=== PATIENT | male | born 1960 | race Hispanic/Latino ===

== ENCOUNTER 2020-08-14 21:59 | Emergency (ER) | payer OTHER ==
[2020-08-14] MEDS ORDERED: EPINEPHrine 1 MG/10 ML Abboject SYRINGE ONE (22:03)
[2020-08-14] MEDS ORDERED: Calcium Chloride 1 GM/10 ML Abboject SYRINGE ONE (22:03)
[2020-08-14] MEDS ORDERED: manNITOL 20% 500 ML ONE (22:19)
[2020-08-14 22:22] LABS: Hemoglobin 10.8 g/dL (14.0-18.0); Mean Corpuscular HGB CONC 33.7 g/dL (32.0-36.0); Mean Corpuscular Hemoglobin 31.2 pg (27.0-31.0); Mean Corpuscular Volume 92.8 fL (78.0-98.0); RBC Distribution Width 12.3 % (11.5-14.5); Red Blood Cell (RBC) Count 3.45 mill/uL (4.70-6.10); White Blood Cell (WBC) Count 14.5 thou/uL (4.8-10.8)
[2020-08-14 22:41] LABS: #Eosinphils 0.1 thou/uL (0.0-0.7); #Lymphocytes 4.7 thou/uL (1.20-3.40); #Monocytes 0.5 thou/uL (0.11-0.59); #Neutrophils 9.2 thou/uL (1.40-6.50); %Basophils 0.1 % (0.0-1.0); %Eosinophils 0.6 % (0.0-10.0); %Lymphocytes 32.2 % (21.0-51.0); %Monocytes 3.5 % (0.0-10.0); %Neutrophils 63.6 % (42.0-75.0); Mean Platelet Volume 7.5 fL (7.4-10.4); Platelet Count 68 thou/uL (130-400)
[2020-08-14 22:43] LABS: ALT (SGPT) 70 U/L (8-55); AST (SGOT) 119 U/L (5-34); Albumin 2.9 g/dL (3.5-5.0); Alcohol Less than 10 mg/dL (Less than 10); Alkaline Phosphatase 76 U/L (40-110); Anion Gap 21 mmol/L (10-20); BUN (Urea Nitrogen) 24 mg/dL (8.9-20.6); Bilirubin, Total 0.9 mg/dL (0.2-1.2); Calc. Creatinine Clearance 0 mL/min (70-130); Calcium 7.7 mg/dL (7.8-10.44); Carbon Dioxide 11 mmol/L (22-29); Chloride 113 mmol/L (98-107); Potassium 3.8 mmol/L (3.5-5.1); Protein, Total 4.9 g/dL (6.0-8.3); Sodium 141 mmol/L (136-145)
[2020-08-14 22:45] LABS: Glucose 241 mg/dL (70-105)
[2020-08-14] MEDS ORDERED: Rocuronium Bromide 10 MG/ML (10ML VIAL) ONE (22:46)
[2020-08-14] MEDS ORDERED: Ketamine 50 MG/ML (10ML VIAL) ONE (22:46)
== END 2020-08-14 22:26 | disposition expired ==
LOC: ERS 21:59 → EDBD 21:59 → ERS 22:26
DX: I46.9 Cardiac arrest, cause unspecified (principal); S01.01XA Laceration without foreign body of scalp, initial encounter; S05.12XA Contusion of eyeball and orbital tissues, left eye, initial encounter; V89.2XXA Person injured in unspecified motor-vehicle accident, traffic, initial encounter
CPT/HCPCS: 31500; 36415; 71045; 72170; 80053; 80307; 83605; 85025; 93005; 94760; 96374; 96375; G0390; J0171; J7799